=== PATIENT | female | born 1960 | race Caucasian/White ===

== ENCOUNTER 2021-05-15 19:20 | Observation (INO) ==
[~2021-05-15 19:20] MED LIST: IVERMECTIN PO SCH
[2021-05-15] MEDS ORDERED: HumuLIN R SUBCUT PRN (20:55)
[2021-05-15] MEDS ORDERED: ROBITUSSIN DM PO PRN (20:55)
[2021-05-15] MEDS ORDERED: PHARMACY CONSULT - IVERMECTIN XX SCH (21:00)
[2021-05-15] MEDS ORDERED: PEPCID TAB 40 MG PO SCH (21:15)
[2021-05-15 21:43] LABS: BASOPHILS % (AUTO) 0.1 % (0.2-1.0); HEMATOCRIT 38.3 % (36.0-47.0); HEMOGLOBIN 13.3 g/dL (12.0-16.0); LYMPHOCYTES % (AUTO) 10.9 % (21.0-51.0); MEAN CORPUSCULAR HEMOGLOBIN 30.9 pg (27.0-34.0); MEAN CORPUSCULAR HGB CONC 34.7 g/dL (33.0-35.0); MONOCYTES # (AUTO) 0.9 x10^3/uL (0.3-0.8); MONOCYTES % (AUTO) 10.6 % (0.0-13.0); NEUTROPHILS # (AUTO) 6.8 x10^3/uL (2.2-4.8); NEUTROPHILS % (AUTO) 78.4 % (42.0-75.0); PLATELET COUNT 226 X10^3/uL (150.0-450.0); RED BLOOD COUNT 4.31 X10^6/uL (3.5-5.4); RED CELL DISTRIBUTION WIDTH 12.5 % (11.6-16.5); WHITE BLOOD COUNT 8.7 X10^3/uL (3.6-10.0)
--- NOTE | 2021-05-15 22:03 | RAD ---
HISTORYCOVID POSITIVE; N/V; SOB; WEAKNESSSTUDYCHEST, 1 VIEWCOMPARISONNone availableTECHNIQUEChest radiographic imaging, AP portable projection, 1 imageFINDINGSNo cardiomegaly.No focal airspace disease.Lungs are hyperinflated.No pleural effusion.No pneumothorax.No acute osseous abnormality.IMPRESSION1. No focal airspace disease.2. Lungs are hyperinflated; consistent with COPD.Electronically signed by: Reynaldo Pagan (May 15, 2021 22:01:27)
[2021-05-15 22:07] LABS: ALANINE AMINOTRANSFERASE 24 Units/L (12-78); ALBUMIN 4.3 g/dL (3.4-5.0); ALKALINE PHOSPHATASE 88 Units/L (46-116); ASPARTATE AMINO TRANSFERASE 32 Units/L (15-37); BLOOD UREA NITROGEN 41 mg/dL (7-18); CALCIUM 8.9 mg/dL (8.5-10.1); CHLORIDE 100 mmol/L (98-107); CKMB % 2.4 % (<4); CREATINE KINASE 93 Units/L (26-192); CREATINE KINASE MB 2.2 ng/mL (0-4.0); SODIUM 137 mmol/L (136-145); TOTAL PROTEIN 8.5 g/dL (6.4-8.2); TROPONIN I < 0.02 ng/mL (0-1.5); eGFR NON BLACK RACES 30 (>60)
[2021-05-15 22:08] LABS: CARBON DIOXIDE 14.7 mmol/L (21-32)
[2021-05-15] MEDS ORDERED: PULMICORT NEB TX 0.5 MG NEB ONE (22:25)
[2021-05-15] MEDS ORDERED: ACCUNEB 1.25 MG NEBULE ONE (22:25)
[2021-05-15] MEDS ORDERED: BROVANA ONE (22:26)
[2021-05-15] MEDS ORDERED: THIAMINE HCL INJ ONE (22:47)
[2021-05-15] MEDS ORDERED: PROTONIX TAB 40 MG PO ONE (22:47)
[2021-05-15] MEDS ORDERED: PEPCID TAB 40 MG ONE (22:48)
[2021-05-15] MEDS ORDERED: FORTAZ or TAZICEF VIAL INJ ONE (22:48)
[2021-05-15] MEDS ORDERED: NS 50 ML IV + SPIKE MINIBAG* 50 ML IV ONE (22:48)
[2021-05-15] MEDS ORDERED: NS 100 ML IV 100 ML ONE (22:48)
[2021-05-15] MEDS ORDERED: ASCORBIC ACID INJ MULTI-DOSE VIAL IV ONE (22:50)
[2021-05-15] MEDS ORDERED: NS 1/2 1000 ML IV 1,000 ML IV ONE (22:56)
[2021-05-15] MEDS ORDERED: NS 1/2 1000 ML IV 1,000 ML IV SCH (23:00)
[2021-05-15] MEDS ORDERED: LIPITOR TAB 80 MG PO SCH (23:00)
[2021-05-15] MEDS ORDERED: REMDESIVIR 200 MG in NS 250 ML IV 250 ML IV ONE (23:00)
[2021-05-15] MEDS ORDERED: MELATONIN PO SCH (23:00)
[2021-05-15] MEDS ORDERED: SINGULAIR TAB 10 MG PO SCH (23:00)
[2021-05-15 23:04] LABS: ABG ALLEN TEST POS; ABG BASE EXCESS -10.7 mmol/L (-2.0-2.0); ABG HCO3 12.4 mmol/L (22-26)
[2021-05-15] MEDS ORDERED: LOVENOX INJ 30 MG SYR SC SCH (23:45)
[2021-05-15] MEDS: TESSALON PERLES PO SCH (23:48)
[2021-05-15] MEDS: PROTONIX TAB 40 MG PO SCH (23:48)
[2021-05-16] MEDS ORDERED: FORTAZ or TAZICEF VIAL INJ 1 G in NS 100 ML IV + SPIKE MINIBAG* 100 ML IV SCH ×2
[2021-05-16] MEDS ORDERED: LOVENOX INJ 30 MG SYR SC SCH
[2021-05-16] MEDS: THIAMINE HCL INJ IVP SCH ×2 (00:03→10:01)
[2021-05-16] MEDS: SOLU-Medrol 40 MG VIAL IVP SCH ×3 (00:10→13:29)
[2021-05-16] MEDS ORDERED: LOVENOX INJ 30 MG SYR SC ONE (00:10)
[2021-05-16 01:27] VITALS: BMI 19.6
[2021-05-16 04:43] LABS: BASOPHILS % (AUTO) 0.1 % (0.2-1.0); HEMATOCRIT 35.6 % (36.0-47.0); HEMOGLOBIN 12.2 g/dL (12.0-16.0); LYMPHOCYTES # (AUTO) 0.5 X10^3/uL (1.3-2.9); LYMPHOCYTES % (AUTO) 9.6 % (21.0-51.0); MEAN CORPUSCULAR HEMOGLOBIN 30.5 pg (27.0-34.0); MEAN CORPUSCULAR HGB CONC 34.2 g/dL (33.0-35.0); MEAN CORPUSCULAR VOLUME 89.3 fL (80.0-100.0); MEAN PLATELET VOLUME 8.2 fL (7.4-11.0); MONOCYTES # (AUTO) 0.2 x10^3/uL (0.3-0.8); MONOCYTES % (AUTO) 3.6 % (0.0-13.0); NEUTROPHILS # (AUTO) 4.7 x10^3/uL (2.2-4.8); NEUTROPHILS % (AUTO) 86.7 % (42.0-75.0); PLATELET COUNT 203 X10^3/uL (150.0-450.0); RED BLOOD COUNT 3.98 X10^6/uL (3.5-5.4); RED CELL DISTRIBUTION WIDTH 12.8 % (11.6-16.5); WHITE BLOOD COUNT 5.4 X10^3/uL (3.6-10.0)
[2021-05-16 05:06] LABS: ALANINE AMINOTRANSFERASE 20 Units/L (12-78); ALBUMIN 3.6 g/dL (3.4-5.0); ALKALINE PHOSPHATASE 79 Units/L (46-116); ASPARTATE AMINO TRANSFERASE 30 Units/L (15-37); BLOOD UREA NITROGEN 41 mg/dL (7-18); CALCIUM 8.4 mg/dL (8.5-10.1); CARBON DIOXIDE 15.6 mmol/L (21-32); CHLORIDE 104 mmol/L (98-107); CREATININE 1.56 mg/dL (0.55-1.02); SODIUM 139 mmol/L (136-145); TOTAL PROTEIN 7.4 g/dL (6.4-8.2); eGFR NON BLACK RACES 36 (>60)
[2021-05-16] MEDS ORDERED: PEPCID TAB 20 MG PO SCH (06:00)
[2021-05-16] MEDS ORDERED: LEVAQUIN PREMIX IV 500 MG 500 MG/100 ML BAG IV SCH (06:00)
[2021-05-16] MEDS ORDERED: DIFLUCAN PO SCH (06:00)
[2021-05-16] MEDS ORDERED: TESSALON PERLES PO ONE ×2 (06:02→13:09)
[2021-05-16] MEDS ORDERED: LEVAQUIN PREMIX IV 500 MG 500 MG/100 ML BAG IV ONE (06:02)
--- NOTE | 2021-05-16 06:15 | RAD ---
HISTORYCOVID-19, shortness of breathSTUDYChest AP [id number]/08/2021FINDINGSThe heart is within normal limits in size. The anatoliy are normal. The lungs are markedly hyperinflated consistent with COPD. No acute alveolar infiltrates or pleural effusions are identified. No pneumothoraces are present. Bony thorax is unremarkable.IMPRESSIONLungs markedly hyperinflated but without acute infiltrates. Consistent with COPDElectronically signed by: ANGIE BATISTA (May 16, 2021 06:13:42)
[2021-05-16] MEDS: ASCORBIC ACID INJ MULTI-DOSE VIAL 1,500 MG in NS 50 ML IV 50 ML IV SCH ×3 (06:16→13:05)
[2021-05-16] MEDS: TESSALON PERLES PO SCH ×2 (06:17→13:30)
[2021-05-16] MEDS ORDERED: ZINC SULFATE PO SCH (09:00)
[2021-05-16] MEDS ORDERED: BROVANA IN SCH (09:00)
[2021-05-16] MEDS ORDERED: VITAMIN D3 125 mcg (5,000 UNITS) PO SCH (09:00)
[2021-05-16] MEDS ORDERED: ACCUNEB 1.25 MG NEBULE NEB SCH (09:00)
[2021-05-16] MEDS ORDERED: PULMICORT NEB TX 0.5 MG NEB SCH (09:00)
[2021-05-16] MEDS ORDERED: ZyrTEC TAB 10 MG PO SCH (09:00)
[2021-05-16] MEDS ORDERED: ZyrTEC TAB 10 MG ONE (09:40)
[2021-05-16] MEDS ORDERED: THIAMINE HCL INJ ONE (09:40)
[2021-05-16] MEDS ORDERED: VITAMIN D3 125 mcg (5,000 UNITS) ONE (09:40)
[2021-05-16] MEDS ORDERED: ZINC SULFATE ONE (09:40)
[2021-05-16] MEDS ORDERED: PROTONIX TAB 40 MG PO ONE (09:40)
[2021-05-16] MEDS ORDERED: TORADOL 30 MG VIAL IVP ONE (09:45)
[2021-05-16] MEDS ORDERED: TORADOL 30 MG VIAL ONE (09:50)
[2021-05-16] MEDS: PROTONIX TAB 40 MG PO SCH (09:58)
[2021-05-16] MEDS ORDERED: REGEN-COV VIAL 10 ML, DRUG FILTER EXTENSION SET * 1 EA in NS 100 ML IV 100 ML IV ONE ×2 (10:14)
[2021-05-16] MEDS ORDERED: NS 100 ML IV + SPIKE MINIBAG* 100 ML IV ONE (10:17)
[2021-05-16 12:05] VITALS: BP 111/55
[2021-05-16] MEDS ORDERED: NS 100 ML IV 100 ML ONE (12:19)
[2021-05-16] MEDS ORDERED: ASCORBIC ACID INJ MULTI-DOSE VIAL IV ONE (12:20)
[2021-05-16] MEDS ORDERED: SOLU-Medrol 40 MG VIAL ONE (13:09)
[2021-05-16] MEDS ORDERED: SNACK - Diabetic Appropriate PO SCH (20:00)
[2021-05-16] MEDS ORDERED: FORTAZ or TAZICEF VIAL INJ IV SCH ×2 (21:00)
[2021-05-17] MEDS ORDERED: REMDESIVIR 100 MG in NS 250 ML IV 250 ML IV SCH (09:00)
--- NOTE | 2021-06-20 11:26 | DR.CARTERS ---
Short Stay Summary - Admission Date Date of Admission: 05/15/21 - Discharge Date Discharge Date: 05/16/21 - Admission Diagnoses (1) COVID-19 Status: Acute (2) Bronchitis Status: Acute - Hospital Course Hospital Course: TIME SPENT ON CLINICAL ASSESSMENT, REVIEWING LABS AND IMAGING, DECISION MAKING, AND DOCUMENTATION GREATER THAN 75 MINUTES. IS A 61 YEAR OLD WHITE FEMALE. SHE PRESENTED TO THE OFFICE WITH COMPLAINTS OF A NON-PRODUCTIVE COUGH, SHORTNESS OF BREATH, FEVER, DIARRHEA, AND GENERALIZED BODY ACHES. SHE ALSO ADMITTED TO NAUSEA AND VOMITING. PATIENT ADMITTED TO BEING IN CLOSE CONTACT WITH SOMEONE WHO TESTED POSITIVE FOR COVID- 19. SHE REPORTED THAT SYMPTOMS STARTED ABOUT 5 DAYS PRIOR TO ARRIVAL. HER PMH INCLUDES: HTN, GERD, HYPOTHYROIDISM, ANXIETY, DEPRESSION, HYSTERECTOMY. AUSCULTATION OF BILATERAL LUNG HANDLEY REVEALED DIMINISHED LUNG SOUNDS THROUGHOUT. SHE WAS ADMITTED TO THE HOSPITAL FOR FURTHER EVALUATION AND SUSAN ATMENT. ON ARRIVAL TO THE ER, VITALS WERE 98.4-86-28-97%RA-109/68. LABS WERE OBTAINED. ABNORMAL LAB VALUES INCLUDED THE FOLLOWING: D-DIMER 1.20, CARBON DIOXIDE 14.7, BUN 41, CREATININE 1.80, FERRITIN 451, CRP 15.20, TOTAL PROTEIN 8.5. COVID-19 POSITIVE. AN ABG WAS OBTAINED AND REVEALED: PH 7.380, PC02 21, P02 95, HC03 12.4, 02 SAT 97, BASE EXCESS -10.7, A-A GRADIENT 28, FI02 21.0. BLOOD CULTURES WERE SET UP. CHEST XRAY WAS OBTAINED AND REVEALED: 1. No focal airspace disease. 2. Lungs are hyperinflated; consistent with COPD. EKG REVEALED: SINUS RHYTHM WITH HR 77. IN THE ER, SHE WAS GIVEN REMDESIVIR 200MG IV X 1, A PULMICORT NEB TX, BROVANA, AND AN ALBUTEROL NEB TX. SHE WAS ADMITTED TO THE HOSPITAL FOR FURTHER EVALUATION AND TREATMENT OF COVID-19, INTRACTABLE NAUSEA/VOMITING. SHE WAS STARTED ON NS AT 75 ML/HR, FORTAZ 1G IV Q8H, LEVAQUIN 500MG IV DAILY, REMDESIVIR 100MG IV DAILY, ASCORBIC ACID 1500MG IV Q6H, ALBUTEROL NEBS QID, PULMICORT NEBS BID, BROVANA INHALER BID, SOLU-MEDROL 80MG IV Q8H, DIFLUCAN 100MG PO DAILY, LOVENOX 30MG SC Q12H, LIPITOR 80MG PO HS, TESSALON PERLES 200MG PO TID, CETIRIZINE 10MG PO DAILY, IVERMECTIN, PEPCID 40MG PO BID, ROBITUSSIN DM 10ML PO QID PRN, HUMULIN R SLIDING SCALE, SINGULAIR 10MG PO HS, PROTONIX 40MG PO BID, MELATONIN 10MG PO HS, THIAMINE 200MG IV BID, AND ZINC SULFATE 220MG PO BID. OTHERWISE, WE PLANNED TO FOLLOW UP WITH AM LABS AND CHEST XRAY AND CONTINUE TO MONITOR. ON THE MORNING FOLLOWING ADMISSION, PATIENT IS ALERT AND ORIENTED, LYING IN BED ON MORNING ROUNDS. SHE CONTINUES WITH COMPLAINTS OF COUGH AND SHORTNESS OF BREATH. SHE DOES ADMIT TO SLIGHT IMPROVEMENT IN SYMPTOMS SINCE ADMISSION. SHE HAS BEEN ON ROOM AIR THROUGHOUT THE NIGHT. ON EXAMINATION, HEART IS REGULAR IN RATE AND RHYTHM. BILATERAL LUNGS ARE NOTED WITH DIMINISHED LUNG SOUNDS THROUGHOUT. ABDOMEN ROUND, SOFT, AND NON-TENDER WITH NORMAL BOWEL SOUNDS NOTED IN ALL QUADRANTS. HER VITALS THIS MORNING ARE: 97.9-73-20-97%-114/54. LABS WERE OBTAINED. ABNORMAL LAB VALUES INCLUDE THE FOLLOWING: D-DIMER 0.98, CARBON DIOXIDE 15.6, BUN 41, CREATININE 1.56, CALCIUM 8.4, FERRITIN 388, CRP 14.60. BLOOD CULTURES PENDING. CHEST XRAY REVEALED: Lungs markedly hyperinflated but w ithout acute infiltrates. Consistent with COPD. ECHO REVEALED AN EJECTION FRACTION OF 62%. PATIENT IS REQUESTING DISCHARGE HOME. WE PLANNED FOR DISCHARGE. INSTRUCTIONS FOR MEDICATIONS AND FOLLOW UP WERE DISCUSSED WITH PATIENT. SHE VERBALIZED UNDERSTANDING OF ALL ORDERS. WE WILL SET HER UP FOR HER 3 REMAINING DOSES OF REMDESIVIR AN OUTPATIENT. SHE WAS GIVEN PRESCRIPTIONS FOR ELIQUIS 2.5MG PO BID, PEPCID 40MG PO BID, IVERMECTIN 12MG PO DAILY X 5 DAYS, LEVAQUIN 500MG PO DAILY, A MEDROL DOSE PACK, ZOFRAN 8MG PO Q8H PRN NAUSEA, PROTONIX 40MG PO BID, AND TRAMADOL 50MG PO Q4H PRN PAIN. SHE WAS DISCHARGED HOME WITH FAMILY IN STABLE CONDITION. TIME SPENT ON CLINICAL ASSESSMENT, REVIEWING LABS AND IMAGING, DECISION MAKING, DISCHARGE INSTRUCTIONS, PREPARING DISCHARGE PAPERS, AND DOCUMENTATION GREATER THAN 75 MINUTES. - Discharge Medications Discharge Medications: Home Medication List levothyroxine 05/15/21 [History] losartan 50 mg PO DAILY 05/15/21 [History] pravastatin 20 mg PO DAILY 05/15/21 [History] apixaban [Eliquis] 2.5 mg PO BID #60 tab 05/16/21 [Rx] famotidine [Pepcid] 40 mg PO BID #60 tab 05/16/21 [Rx] ivermectin 12 mg PO DAILY #20 tab 05/16/21 [Rx] levofloxacin 500 mg PO DAILY #10 tab 05/16/21 [Rx] methylprednisolone [Medrol (Ryan)] See Rx Instructions .ROUTE .COMPLEX #1 ea 05/16/21 [Rx] ondansetron 8 mg PO Q8H PRN #30 tab 05/16/21 [Rx] pantoprazole 40 mg PO BID #60 tab 05/16/21 [Rx] tramadol 50 mg PO Q6H PRN #30 tab MDD 4 05/16/21 [Rx] Prescriptions: apixaban [Eliquis] Hubert Durbin famotidine [Pepcid] Hubert Durbin ivermectin Hubert Durbin levofloxacin Hubert Durbin methylprednisolone [Medrol (Ryan)] Hubert Durbin ondansetron Hubert Durbin pantoprazole Hubert Durbin tramadol Hubert Durbin - Discharge Plan Disposition: 01 HOME, SELF-CARE Condition: Stable Prescriptions: apixaban [Eliquis] 2.5 mg PO BID #60 tab famotidine [Pepcid] 40 mg PO BID #60 tab ivermectin 12 mg PO DAILY #20 tab levofloxacin 500 mg PO DAILY #10 tab methylprednisolone [Medrol (Ryan)] See Rx Instructions .ROUTE .COMPLEX #1 ea ondansetron 8 mg PO Q8H PRN #30 tab PRN Reason: pantoprazole 40 mg PO BID #60 tab tramadol 50 mg PO Q6H PRN #30 tab MDD 4 PRN Reason: - Follow up/Referrals Follow up/Referrals: Hubert Durbin [Primary Care Provider] - 05/24/21 9:00 am (Dr. Durbin will call you.) - Instructions Instructions: Fall Prevention in the Home, Adult, [id number], Shortness of Breath, Adult, Ohha-yp-Oxhe, Incentive Spirometer, Viral Respiratory Infection, Lumu-Qv-Dzle, Hand Washing, Mldw-ew-Igzl, Droplet Precautions, Jngq-pp-Lgbq, Contact Precautions, Agnl-zk-Yuyn, Hypertension, Lkmv-ei-[id number], Community-A cquired Pneumonia, Adult, Anjx-zs-Obac Forms: Excuse From Work or School, Precautions for COVID19, Patient Portal, Social Distancing
== END 2021-05-16 13:50 | disposition home or self-care (01) ==
LOC: INTOOBSV 19:20 → OBS 19:20
PROVIDERS: ADMIT Internal Medicine; ATTEND Internal Medicine
DX: F32.89 Other specified depressive episodes; I10 Essential (primary) hypertension; R53.1 Weakness; R79.89 Other specified abnormal findings of blood chemistry; R11.2 Nausea with vomiting, unspecified; R06.02 Shortness of breath; R94.31 Abnormal electrocardiogram [ECG] [EKG]; K21.9 Gastro-esophageal reflux disease without esophagitis; F41.8 Other specified anxiety disorders; E03.8 Other specified hypothyroidism; J44.9 Chronic obstructive pulmonary disease, unspecified; R79.82 Elevated C-reactive protein (CRP); U07.1 COVID-19